=== PATIENT | male | born 1955 | race Caucasian/White ===

== ENCOUNTER 2018-08-18 08:26 | Observation (INO) | payer OTHER ==
[2018-08-18] MEDS: CIPROFLOXACIN 400 MG in D5W 200 ML IVPB (06:00)
[~2018-08-18 08:26] MED LIST: SUCCINYLCHOLINE CHLORIDE 100 MG/5 ML SYG IV
[2018-08-18] MEDS ORDERED: LIDOCAINE 2% (SDV) 5 ML INJ (09:46)
[2018-08-18] MEDS ORDERED: FENTAnyl 50 MCG/ML VIAL (09:46)
[2018-08-18] MEDS ORDERED: ROCURONIUM 50 MG INJ (09:46)
[2018-08-18] MEDS ORDERED: NEOSTIGMINE 3 MG/3 ML SYRINGE (09:46)
[2018-08-18] MEDS ORDERED: PROPOFOL 20 ML (09:46)
[2018-08-18] MEDS ORDERED: GLYCOPYRROLATE 0.4 MG INJ (09:46)
[2018-08-18] MEDS ORDERED: MIDAZOLAM 1 MG/ML 2 ML INJ (09:47)
[2018-08-18] MEDS ORDERED: DEXAMETHASONE 4 MG/ML 1 ML INJ (09:47)
[2018-08-18] MEDS ORDERED: ONDANSETRON 4 MG INJ ×2 (09:47→13:01)
[2018-08-18] MEDS ORDERED: SUCCINYLCHOLINE CHLORIDE 100 MG/5 ML SYG IV (09:51)
[2018-08-18] MEDS ORDERED: LABETALOL HCL 20MG INJ (11:48)
[2018-08-18] MEDS ORDERED: MEPERIDINE 25 MG INJ (13:01)
[2018-08-18] MEDS ORDERED: HYDROmorphONE 1 MG/5 ML IV SYRINGE IV ×2 (13:01→13:30)
[2018-08-18] MEDS: MEPERIDINE 25 MG INJ IV (13:28)
[2018-08-18] MEDS: ONDANSETRON 4 MG INJ IV (13:28)
[2018-08-18] MEDS: HYDROmorphONE 1 MG/5 ML IV SYRINGE IV (13:29)
[2018-08-18] MEDS ORDERED: BELLADONNA ALK/OPIUM SUPP PR (13:30)
[2018-08-18] MEDS ORDERED: hydrALAzine 20 MG INJ IV (13:30)
[2018-08-18] MEDS ORDERED: FENTAnyl 50 MCG/ML VIAL IV ×3 (13:30)
[2018-08-18] MEDS ORDERED: GLUCOSE GEL 15 GRAM TUBE BUCCAL (13:30)
[2018-08-18] MEDS ORDERED: DEXTROSE 50% 50 ML SYRINGE IV ×2 (13:30)
[2018-08-18] MEDS ORDERED: KETOROLAC 15 MG INJ IV (13:30)
[2018-08-18] MEDS ORDERED: GLUCAGON 1 MG INJ IM (13:30)
[2018-08-18] MEDS ORDERED: MAGNESIUM HYDROXIDE 30ML CUP PO (13:30)
[2018-08-18] MEDS ORDERED: LABETALOL HCL 20MG INJ IV (13:30)
[2018-08-18] MEDS ORDERED: GLUCOSE GEL 15 GRAM TUBE PO ×2 (13:30)
[2018-08-18 13:37] LABS: ADD MAN DIFF? NO
[2018-08-18 13:38] LABS: WHITE BLOOD COUNT 13.7 10^3/ul (4.8-10.8)
[2018-08-18 13:38] LABS: BASOPHILS % 0.3 % (0.0-2.0); EOSINOPHILS # 0.1 10^3/ul (0.0-0.5); EOSINOPHILS % 0.9 % (0.0-7.0); HEMATOCRIT 42.3 % (42.0-52.0); HEMOGLOBIN 14.2 g/dl (14.0-18.0); LYMPHOCYTES # 1.2 10^3/ul (0.8-2.9); LYMPHOCYTES % 8.6 % (15.0-51.0); MEAN CORPUSCULAR HEMOGLOBIN 30.7 pg (29.0-33.0); MEAN CORPUSCULAR HGB CONC 33.6 g/dl (32.0-37.0); MEAN CORPUSCULAR VOLUME 91.6 fl (82.0-101.0); MONOCYTE # 0.3 10^3/ul (0.3-0.9); MONOCYTES % 2.5 % (0.0-11.0); NEUTROPHIL # 11.9 10^3/ul (1.6-7.5); NEUTROPHILS % 87.2 % (39.0-77.0); PLATELET COUNT 252 10^3/UL (140-415); RED BLOOD COUNT 4.62 10^6/ul (4.70-6.10); RED CELL DISTRIBUTION WIDTH 12.7 % (11.5-14.5)
[2018-08-18 13:52] LABS: HOLD TRANSMISSIONS 1
[2018-08-18 13:57] LABS: ANION GAP 9 (5-13); BLOOD UREA NITROGEN 9 mg/dl (7-20); CARBON DIOXIDE 24 mmol/L (21-31); CHLORIDE 106 mmol/L (97-110); Estimated GFR > 60 mL/min (>60); GLUCOSE 124 mg/dl (70-220); POTASSIUM 4.1 mmol/L (3.5-5.1); SODIUM 139 mmol/L (135-144)
[2018-08-18] MEDS: DEXTROSE 5%-0.45% NACL 1,000 ML IV (14:06)
[2018-08-18 14:15] LABS: CREATININE 0.56 mg/dl (0.61-1.24)
[2018-08-18 14:16] LABS: CALCIUM 8.2 mg/dl (8.4-10.2)
[2018-08-18] MEDS: BELLADONNA ALK/OPIUM SUPP PR (14:26)
[2018-08-18 15:01] LABS: HEMOGLOBIN A1C 5.6 % (0-5.9)
[2018-08-18] MEDS: ACCU-CHEK XX ×2 (17:30→21:53)
[2018-08-18] MEDS: INSULIN ASPART [NOVOLOG] 3 ML PEN SC ×2 (18:00→21:52)
[2018-08-18] MEDS: metFORMIN 500 MG TAB PO (18:43)
[2018-08-18] MEDS: HYDROCODONE/APAP (5/325) TAB PO (18:43)
[2018-08-18] MEDS: CIPROFLOXACIN 500 MG TAB PO (21:45)
[2018-08-18] MEDS: RANITIDINE 150 MG TAB PO (21:45)
[2018-08-18] MEDS: TAMSULOSIN (SR) 0.4 MG CAP PO (21:45)
[2018-08-18] MEDS: DOCUSATE SODIUM 100 MG CAP PO (21:46)
[2018-08-19] MEDS: CIPROFLOXACIN 500 MG TAB PO (05:41)
[2018-08-19 05:55] LABS: ADD MAN DIFF? NO
[2018-08-19] MEDS: HYDROCODONE/APAP (5/325) TAB PO (06:20)
[2018-08-19 06:22] LABS: WHITE BLOOD COUNT 15.9 10^3/ul (4.8-10.8)
[2018-08-19 06:22] LABS: BASOPHILS % 0.1 % (0.0-2.0); HEMATOCRIT 42.2 % (42.0-52.0); HEMOGLOBIN 14.2 g/dl (14.0-18.0); LYMPHOCYTES # 1.3 10^3/ul (0.8-2.9); LYMPHOCYTES % 8.2 % (15.0-51.0); MEAN CORPUSCULAR HEMOGLOBIN 30.6 pg (29.0-33.0); MEAN CORPUSCULAR HGB CONC 33.6 g/dl (32.0-37.0); MEAN CORPUSCULAR VOLUME 90.9 fl (82.0-101.0); MONOCYTES % 6.4 % (0.0-11.0); NEUTROPHIL # 13.5 10^3/ul (1.6-7.5); NEUTROPHILS % 84.8 % (39.0-77.0); PLATELET COUNT 282 10^3/UL (140-415); RED BLOOD COUNT 4.64 10^6/ul (4.70-6.10); RED CELL DISTRIBUTION WIDTH 12.7 % (11.5-14.5)
[2018-08-19 06:35] LABS: ALANINE AMINOTRANSFERASE 32 IU/L (13-69); ALBUMIN 3.9 g/dl (3.3-4.9); ALKALINE PHOSPHATASE 69 IU/L (42-121); ANION GAP 11 (5-13); ASPARTATE AMINO TRANSFERASE 26 IU/L (15-46); BILIRUBIN,INDIRECT 0.4 mg/dl (0-1.1); BILIRUBIN,TOTAL 0.4 mg/dl (0.2-1.3); BLOOD UREA NITROGEN 11 mg/dl (7-20); CALCIUM 9.1 mg/dl (8.4-10.2); CARBON DIOXIDE 26 mmol/L (21-31); CHLORIDE 102 mmol/L (97-110); CREATININE 0.64 mg/dl (0.61-1.24); Estimated GFR > 60 mL/min (>60); GLUCOSE 126 mg/dl (70-220); POTASSIUM 4.3 mmol/L (3.5-5.1); SODIUM 139 mmol/L (135-144); TOTAL PROTEIN 6.5 g/dl (6.1-8.1)
[2018-08-19 06:38] LABS: PHOSPHORUS 3.9 mg/dl (2.5-4.9)
[2018-08-19 06:38] LABS: CHOL/HDL RATIO 2.5 RATIO; CHOLESTEROL 125 mg/dl (100-200); HDL CHOLESTEROL 50 mg/dl (30-78); LDL CHOLESTEROL,CALCULATED 63 mg/dl; MAGNESIUM 1.9 mg/dl (1.7-2.5); TRIGLYCERIDES 58 mg/dl (0-149)
[2018-08-19] MEDS: DEXTROSE 5%-0.45% NACL 1,000 ML IV (06:55)
[2018-08-19] MEDS: ACCU-CHEK XX ×2 (07:00→11:30)
[2018-08-19] MEDS: AMLODIPINE 10 MG TAB PO (08:22)
[2018-08-19] MEDS: metFORMIN 500 MG TAB PO (08:22)
[2018-08-19] MEDS: DOCUSATE SODIUM 100 MG CAP PO (08:22)
[2018-08-19] MEDS: LISINOPRIL 5 MG TAB PO (08:22)
[2018-08-19] MEDS: INSULIN ASPART [NOVOLOG] 3 ML PEN SC ×2 (08:24→12:00)
== END 2018-08-19 14:15 | disposition home or self-care (01) ==
LOC: SDS 08:26 → REC 13:06 → 2NE 17:28
PROVIDERS: Urology
DX: N40.1 Benign prostatic hyperplasia with lower urinary tract symptoms (principal); N13.8 Other obstructive and reflux uropathy; I10 Essential (primary) hypertension; E11.9 Type 2 diabetes mellitus without complications; E78.5 Hyperlipidemia, unspecified; K21.9 Gastro-esophageal reflux disease without esophagitis
CPT/HCPCS: 52601; 80048; 80053; 80061; 82962; 83036; 83735; 84100; 85025; 88305